=== PATIENT | male | born 1990 | race Caucasian/White ===

== ENCOUNTER 2019-03-07 08:15 | Outpatient (CLI) | payer OTHER | END 2019-03-07 08:16 | disposition home or self-care (01) | LOC: CTENTCT 08:15 | PROVIDERS: ATTEND Otolaryngology Plastic Surgery within the Head & Neck | DX: J34.2 Deviated nasal septum (principal) | CPT/HCPCS: 70486 ==

== ENCOUNTER 2019-04-06 06:34 | Day surgery (SDC) | payer OTHER ==
[2019-04-05 13:28] VITALS: BMI 26.6
[2019-04-06] MEDS ORDERED: Oxymetazoline HCl 0.05% ( 15 ML ) ONE ×2 (07:31→08:43)
[2019-04-06] MEDS ORDERED: Lidocaine 1% w/Epinephrine 1:100K 20 ML VIAL ONE (08:43)
[2019-04-06] MEDS ORDERED: Bacitracin Zinc Ointment 30 gm TUBE ONE (08:43)
[2019-04-06] MEDS ORDERED: Fentanyl 100 MCG/2 ML VIAL ONE (08:45)
[2019-04-06] MEDS ORDERED: Midazolam HCl 2 mg/2 ml Vial ONE (08:51)
[2019-04-06] MEDS ORDERED: Morphine 2 MG/ML SYRINGE ONE (11:35)
[2019-04-06] MEDS ORDERED: Lidocaine 1% PF 5 ML VIAL ONE (17:00)
[2019-04-06] MEDS ORDERED: PROPOFOL 200 MG/20 ML VIAL ONE (17:00)
[2019-04-06] MEDS ORDERED: Dexamethasone 20 MG/5 ML VIAL ONE (17:00)
[2019-04-06] MEDS ORDERED: Rocuronium Bromide 10 MG/ML (10ML VIAL) ONE (17:00)
[2019-04-06] MEDS ORDERED: Ondansetron PF 4 MG/2 ML Vial ONE (17:00)
[2019-04-06] MEDS ORDERED: Succinylcholine Chloride 20 MG/ML 10 ml SYRINGE FS ONE (17:00)
--- NOTE | 2019-04-07 09:47 | OP ---
DATE OF PROCEDURE: 04/06/2019 PREOPERATIVE DIAGNOSES: 1. Chronic rhinosinusitis. 2. Nasal septal deviation. 3. Bilateral inferior turbinate hypertrophy. 4. Nasal obstruction. POSTOPERATIVE DIAGNOSES: 1. Chronic rhinosinusitis. 2. Nasal septal deviation. 3. Bilateral inferior turbinate hypertrophy. 4. Nasal obstruction. PROCEDURES PERFORMED: 1. Bilateral endoscopic sinus surgery, total ethmoidectomies. 2. Bilateral endoscopic sinus surgery, maxillary antrostomies. 3. Bilateral endoscopic sinus surgery, sphenoidotomies. 4. Left endoscopic sinus surgery, frontal sinusotomies. 5. Nasal septoplasty. 6. Bilateral inferior turbinate with submucosal resection. ESTIMATED BLOOD LOSS: 20 mL. COMPLICATIONS: None. ANESTHESIA: GETA. PROCEDURE IN DETAIL: NASAL SEPTOPLASTY AND BILATERAL INFERIOR TURBINATE RESECTION: Patient was taken to the operating room and placed supine on the table. General endotracheal anesthesia was obtained by the anesthesia staff. Tube was secured in the left lower lip. Patient was then placed in the beach chair position, and Afrin pledgets were placed in the nasal cavity. Injections of 1% lidocaine with 1:100,000 epinephrine were made into the nasal septum as well as the inferior turbinates. Patient was then prepped and draped in standard surgical fashion for nasal surgery. Following this, the Afrin pledgets were removed. A Johnathon incision was made on the left nasal septum. Submucoperichondrial dissection was performed. The deviated portions of the septum included portions of the cartilage and the bony septum. These isolated areas were removed using 3 cutting rongeurs. There was noted to be a large dorsal and caudal strut, left intact for support of the nose. The mucoperichondrial flaps were then reapproximated using a 4-0 gut stitch. Any straight pieces of cartilage were crushed prior to this and placed between the mucoperichondrial flaps. Following this, the inferior turbinates were then punctured with a submucosal coblation wand, and submucosal coblations were performed of multiple areas of the inferior portion of the anterior inferior turbinate. Please note that the submucosal microdebrider was used to submucosally resect the anterior and inferior portions of the inferior turbinates. Following this, a 0-degree endoscope was advanced in the middle meatus. Middle turbinates were gently medialized and the uncinate process was identified bilaterally. The uncinate process was anteriorly fractured using a ball-ended probe and then was removed using the microdebrider and up-biting Blakesley forceps bilaterally. Following this, the natural maxillary sinus ostia was identified using then ball-ended probe and then the maxillary sinus ostia was widened using the curved microdebrider and the straight Blakesley forceps bilaterally. Following this, the ethmoidal bulla was identified bilaterally and the 0-degree microdebrider was used to puncture the ethmoidal bulla on its medial and inferior aspects bilaterally. Following this, the ethmoidal bulla was removed using the 0-degree microdebrider and up-biting microdebrider, and the grand lamella was then identified bilaterally and was punctured into the posterior ethmoidal cells. Working from posterior to anterior, the ethmoidal cells were opened in a mucosal sparing technique. Following this, the sphenoid sinuses were approached through the previous ethmoidectomies, where the anterior wall of the sphenoid sinus was identified and was punctured using the 0-degree microdebrider bilaterally. The sphenoidotomies were widened medially and inferiorly bilaterally using the 0-degree microdebrider. Following this, a 45-degree endoscope along with 40-degree microdebrider blade were used to further resect the frontal recess cells and open and expose the frontal sinus ostia bilaterally. The frontal sinus ostia were widened bilaterally using the curved microdebrider. Following this, the nasal cavity was irrigated. Mirapex was placed within the middle meatus. Larsen splints were placed and secured. Job ID: [id number]
== END 2019-04-06 12:00 | disposition home or self-care (01) ==
LOC: SDC 06:34
PROVIDERS: ATTEND Otolaryngology Plastic Surgery within the Head & Neck
PROC: 09BM8ZZ Excision of Nasal Septum, Via Natural or Artificial Opening Endoscopic (ICD-10-PCS; principal; 2019-04-06)
PROC: 099R8ZZ Drainage of Left Maxillary Sinus, Via Natural or Artificial Opening Endoscopic (ICD-10-PCS; principal; 2019-04-06)
PROC: 099Q8ZZ Drainage of Right Maxillary Sinus, Via Natural or Artificial Opening Endoscopic (ICD-10-PCS; principal; 2019-04-06)
PROC: 09BL8ZZ Excision of Nasal Turbinate, Via Natural or Artificial Opening Endoscopic (ICD-10-PCS; principal; 2019-04-06)
DX: J32.9 Chronic sinusitis, unspecified (principal); J34.2 Deviated nasal septum; J34.3 Hypertrophy of nasal turbinates; J34.89 Other specified disorders of nose and nasal sinuses
CPT/HCPCS: J0131; J1100; J2001; J2250; J2270; J2405; J2704; J3010